=== PATIENT | male | born 1985 | race Two or more races ===

== ENCOUNTER 2021-09-12 06:43 | Emergency (ER) | payer OTHER ==
[~2021-09-12] VITALS: Ht 170.2 cm; Wt 86.2 kg
[2021-09-12 08:47] VITALS: BP 128/79
== END 2021-09-12 08:58 | disposition home or self-care (01) ==
LOC: ER 06:43
DX: S46.912A Strain of unspecified muscle, fascia and tendon at shoulder and upper arm level, left arm, initial encounter (principal); X58.XXXA Exposure to other specified factors, initial encounter; Y93.89 Activity, other specified; Y92.89 Other specified places as the place of occurrence of the external cause; Y99.8 Other external cause status
CPT/HCPCS: 73080

== ENCOUNTER 2021-11-09 09:28 | Emergency (ER) | payer OTHER ==
[~2021-11-09] VITALS: Ht 170.2 cm; Wt 90.7 kg
[2021-11-09 09:30] VITALS: BP 115/78
[2021-11-09] MEDS ORDERED: IBUP800T27 PO (11:04)
== END 2021-11-09 11:17 | disposition home or self-care (01) ==
LOC: ER 09:28
DX: S83.91XA Sprain of unspecified site of right knee, initial encounter (principal); X50.1XXA Overexertion from prolonged static or awkward postures, initial encounter; Y93.66 Activity, soccer; Y92.39 Other specified sports and athletic area as the place of occurrence of the external cause; Y99.8 Other external cause status
CPT/HCPCS: 73562